=== PATIENT | female | born 1990 | race Caucasian/White ===

== ENCOUNTER 2017-02-28 09:00 | Inpatient (IN) | payer OTHER, MEDICAID ==
--- NOTE | ~2017-02-28 | FD ---
ADMIT: 02/28/2017 RM/LOC: 221 [facility] MR#: [id number] 2620 [facility] [address] [place] [phone] FELICIA MOORE [address] [place] [id number] Final Diagnosis SEX: F AGE: 26 : 1990 ADMISSION DATE: 02/28/2017 DISCHARGE DATE: 03/01/2017 FINAL DIAGNOSES: 1. A 26-year-old 4, para 4-0-0-4 status post vaginal delivery at 39 weeks 0 days. 2. Group B streptococci positive. PROCEDURE: Spontaneous vaginal delivery. Mara Billings MD Resident / Glenn Hinkle MD / roberto carlos JOB #: [id number] CC: Glenn Hinkle MD, Attending Physician Glenn Hinkle MD, Family Physician
[2017-03-02] MEDS ORDERED: MOTRIN-DPS800 MG PO (11:58)
[2017-03-02] MEDS ORDERED: TYLENOL EXTRA500 M1 PO (11:58)
[2017-03-02] MEDS ORDERED: PRENATAL VIT1 TAB PO (11:58)
[2017-03-02] MEDS ORDERED: COLACE-DPS100 MG PO (11:58)
[2017-03-02] MEDS ORDERED: NIPPLECREAM TP (11:59)
--- NOTE | 2017-03-22 09:38 | OR ---
ADMIT: 02/28/2017 RM/LOC: 221 [facility] MR#: [id number] [address] [facility] [address] [place], [place] [address] FELICIA MOORE [address] [place] [id number] Operative/Delivery Room Report SEX: F AGE: 26 : 1990 SURGERY DATE: 02/28/2017 SURGEON: Glenn Hinkle MD PREPROCEDURE DIAGNOSES: 1. A 26-year-old G4, P3-0-0-3 with an intrauterine at 39 weeks 0 days via first trimester ultrasound. 2. GBS positive. 3. History of delivery at 33 weeks, history of contractions this , [place] injections IM weekly. POSTOPERATIVE DIAGNOSES: 1. A 26-year-old G4, P4-0-0-4 status post spontaneous vaginal delivery at 39 weeks 0 days. 2. Bilateral labial abrasions, hemostatic without repair. FINDINGS: Viable female infant with a weight of 9 pounds 12 ounces, Apgars 8 and 9, position JEANNA. Placenta with three vessel cord. PROCEDURE PERFORMED: A 26-year-old G4, P3-0-0-3 with an intrauterine at 39 weeks 0 days presented to labor and delivery around 9:00 a.m. with chief complaint of contractions. The patient reported leaking out fluid at 6:00 a.m. this morning. Contractions increased in intensity and frequency. She was admitted for active labor management. She progressed to complete without further augmentation. The patient was complete and expulsive efforts were started. The infant's head was delivered over intact perineum. The shoulders followed. Nuchal cord x1 was present and was not reduced. Infant was handed to the mother and stimulated. The was vigorous and crying. After delayed cord clamping, the was cord was clamped and cut. Cord blood was collected. Cord gas was not collected. Placenta is delivered spontaneously with three vessel cord. Placenta anatomy was normal. Pitocin was administered per protocol. The patient's perineum and vaginal tissue were inspected for lacerations. The patient was noted to have bilateral labial abrasion, which was hemostatic without repair. No other lacerations were noted. All tissues were hemostatic and counts were correct x2. Mother and infant stable in mother's room. Mara Billings MD Resident / Glenn Hinkle MD / tena JOB #: [id number] CC: Glenn Hinkle, Attending Physician Glenn Hinkle, Family Physician
--- NOTE | 2017-03-22 09:38 | HP ---
ADMIT: 02/28/2017 RM/LOC: 221 [facility] MR#: [id number] 2620 [facility] [address] [place], [place] [address] FELICIA MOORE [address] [place] [id number] History and Physical SEX: F AGE: 26 : 1990 DATE OF SERVICE: HISTORY OF PRESENT ILLNESS: This is a 26-year-old G4, P 3-0-0-3 with an intrauterine at 39 weeks and 0 day via first trimester ultrasound, who presented [facility] with chief complaints of contractions and leaking of fluid. The patient reportedly leaking of fluid began at approximately 6 o'clock this morning. She denies vaginal bleeding. She reports normal movement. Contractions have increased in intensity and frequency. Occurring every 3 to 4 minutes. is complicated by a history of delivery at 33 weeks and a history of labor in the third trimester of this . She is on [place] injection. is also complicated by GBS positive. No other known complications. PAST MEDICAL HISTORY: She has a history of delivery. Denies a history of hypertension or asthma. PAST SURGICAL HISTORY: Denies surgical history. MEDICATIONS: She is on: 1. [place] IM weekly. 2. Cod liver oil. 3. Desiccated liver. 4. vitamin. 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 SOCIAL HISTORY: The patient is and has 3 daughters currently. She denies tobacco, alcohol, or recreational substances. FAMILY HISTORY: She has a paternal grandmother with breast cancer. Myocardial infarction in paternal grandmother and maternal grandmother. Her father has a history of DVTs. REVIEW OF SYSTEMS: The patient denies headache, changes of vision, chest pain, or shortness of breath. No nausea, vomiting, diarrhea, or constipation. PHYSICAL EXAMINATION: VITAL SIGNS: Blood pressure 124/78, pulse 101, afebrile, respiratory rate 18, and sating greater than 95% on room air. GENERAL: She is in acute distress with contractions, but breathing through them. She is alert and oriented. HEART: Regular rate and rhythm. LUNGS: Clear to auscultation bilaterally. ABDOMEN: Gravid. Estimated weight is 3800 g. Frankie not performed as the patient is on birthing ball. EXTREMITIES: 1+ edema in bilateral lower extremities. heart tones baseline appears to be 135, positive accelerations, positive early decelerations, and moderate variability. Sterile vaginal exam is 6, 90 and -1 per nursing staff. ADMIT: 02/28/2017 RM/LOC: 221 [facility] MR#: [id number] [address] [id number] [address]EL[address] MOORE [address] [place], [place] [id number] History and Physical SEX: F AGE: 26 : 1990 LABORATORY DATA: Blood type is A positive. GBS status is positive. One-hour glucose tolerance test 94. Hemoglobin 12.1. Rubella nonimmune. RPR negative. Hepatitis B negative. Gonorrhea and chlamydia negative. HIV negative. ASSESSMENT AND PLAN: This is a 26-year-old G4, P 3-0-0-3 with an intrauterine at 39 weeks and 0 day, who presents to the [facility] Center with chief complaints of regular contractions and leaking of fluid. She was found to be in active labor. 1. Admit to [facility] for active labor management. Verbal and written consents were obtained for vaginal delivery, assistive vaginal delivery, or section if needed. The patient refuses IV fluids and antibiotics for GBS positive status. She is agreeable to Pitocin . 2. GBS positive. The patient declines antibiotics. We will plan to monitor infant for 48 hours after delivery for signs and symptoms of sepsis. 3. Rubella nonimmune. Encourage MMR vaccination . The patient was discussed and seen by staff physician, Dr. Glenn Hinkle. Mara Billings MD Resident / Glenn Hinkle MD / tena JOB #: [id number] CC: Glenn Hinkle, Attending Physician Glenn Hinkle, Family Physician
== END 2017-03-01 17:30 | disposition home or self-care (01) | DRG 775 ==
LOC: BC 09:00 → 2LDRP 09:00 → BC 03-07 08:00
PROVIDERS: ADMIT Obstetrics & Gynecology
PROC: 10E0XZZ Delivery of Products of Conception, External Approach (ICD-10-PCS; principal; 2017-02-28)
DX: O99.824 Streptococcus B carrier state complicating childbirth (principal); O76 Abnormality in fetal heart rate and rhythm complicating labor and delivery; O69.81X0 Labor and delivery complicated by cord around neck, without compression, not applicable or unspecified; Z3A.39 39 weeks gestation of pregnancy; Z37.0 Single live birth